=== PATIENT | male | born 1980 | race Caucasian/White ===

== ENCOUNTER 2017-10-07 23:03 | Inpatient (IN) | payer BC ==
[~2017-10-07] VITALS: Ht 188 cm; Wt 70.0 kg
[~2017-10-07 23:03] MED LIST: [UNRECOGNIZED DRUG - OTHER] PO
[2017-10-08 00:30] LABS: BASOPHIL COUNT 0.1 K/uL (0-0.1); EOSINOPHIL (%) 0 % (0-5); HEMATOCRIT 38.8 % (38.0-50.0); IMMATURE GRANULOCYTE (%) 0.3 % (0.0-0.7); INSTRUMENT ABS NEUTROPHIL CT 8.2 K/uL; LYMPHOCYTE COUNT 1.4 K/uL (1.0-2.8); MCH 26.2 PG (29.0-34.0); MCV 79.3 FL (86-99); MEAN PLAT.VOLUME 9.2 uM^3 (9.0-12.4); MONOCYTE (%) 10.2 % (3-12); MONOCYTE COUNT 1.1 K/uL (0-0.8); NEUTROPHIL (%) 76.2 % (45-76); NEUTROPHIL COUNT 8.2 K/uL (1.8-6.4); PLATELET COUNT 395 K/uL (156-360); RBC DIS.WIDTH-CV 12.3 % (11.8-14.6); RBC DIS.WIDTH-SD 35.3 % (39-53); RED BLOOD COUNT 4.89 M/uL (4.00-5.50); WHITE BLOOD COUNT 10.7 K/uL (4.1-10.2)
[2017-10-08 00:41] LABS: CHLORIDE 99 mEq/L (99-109); POTASSIUM 3.8 mEq/L (3.7-5.4); SODIUM 134 mEq/L (136-147)
[2017-10-08 00:43] LABS: GLUCOSE 108 mg/dL (70-99)
[2017-10-08 00:44] LABS: ANION GAP 11 MEQ/L (2-14)
[2017-10-08 00:45] LABS: TOTAL BILIRUBIN 0.8 mg/dL (0.0-1.0)
[2017-10-08 00:46] LABS: ALKALINE PHOSPHATASE 65 IU/L (3-129)
[2017-10-08 00:47] LABS: GFR ESTIMATE (CALCULATED) > 59 mL/min/ (58.99-99999)
[2017-10-08 00:48] LABS: UREA NITROGEN (BUN) 11 mg/dL (9-23)
[2017-10-08 03:59] LABS: APPEARANCE HAZY-YELLOW; MONONUCLEAR WBC'S 9 %; POLYNUCLEAR WBC'S 91 % (0-25); RED CELL COUNT 2000 /MM^3 (0-1); SYNOVIAL FLUID EOSINOPHILS 0 % (0-25); WHITE CELL COUNT 56630 /MM^3 (0-200.0)
[2017-10-08 04:45] LABS: C-REACTIVE PROTEIN > 240.0 MG/L (0-10)
[2017-10-08 04:53] LABS: ERTH.SED.RATE 118 MM/HR (0-15)
[2017-10-08 07:33] LABS: CRYSTALS NO CRYSTALS SEEN
[2017-10-08 08:00] VITALS: BP 113/60
[2017-10-08 08:17] VITALS: BP 113/60
[2017-10-08 10:50] VITALS: BP 115/65
[2017-10-08] MEDS ORDERED: ONCE DAILY1 EACH PO (12:55)
[2017-10-08] MEDS ORDERED: BENGAY ULTRA S113 GM TP (12:58)
[2017-10-08] MEDS ORDERED: DOXYCYCLINE MO100 MG PO (12:58)
[2017-10-08] MEDS ORDERED: CLARITIN10 MG PO (13:03)
[2017-10-08 15:09] VITALS: BP 118/77
[2017-10-08 23:00] VITALS: BP 123/61
[2017-10-09] MEDS ORDERED: BENADRYL25 MG PO (08:18)
[2017-10-09] MEDS ORDERED: ENDOCET 5-3251 EACH PO (08:19)
[2017-10-09 08:28] VITALS: BP 117/68; BP 121/59
[2017-10-09 16:13] VITALS: BP 117/67
[2017-10-09 23:14] VITALS: BP 116/68
[2017-10-10 08:27] VITALS: BP 128/67
== END 2017-10-10 20:08 | disposition home or self-care (01) | DRG 488 ==
LOC: EME 23:03 → ENRESERV 10-08 05:10 → 3EAST 10-08 05:10 → EDOF 10-08 05:10 → ENRESERV 10-08 05:35 → 3EAST 10-08 08:02
PROVIDERS: Emergency Medicine
DX: M00.9 Pyogenic arthritis, unspecified (principal); A69.23 Arthritis due to Lyme disease; M06.4 Inflammatory polyarthropathy; M23.221 Derangement of posterior horn of medial meniscus due to old tear or injury, right knee; R00.0 Tachycardia, unspecified; Z91.19 Patient's noncompliance with other medical treatment and regimen; Z82.49 Family history of ischemic heart disease and other diseases of the circulatory system
CPT/HCPCS: 80053; 83605; 85025; 85651; 86140; 86850; 86900; 86901; 87040; 87070; 87075; 87205; 89051; 89060; 93005; 97530 GP; 99281; 99285; G8987 GO CJ; G8991 GO CI; J0171; J0330; J0690; J0696; J1170; J1650; J2175; J2250; J2270; J2405; J2710; J3010; J7030